=== PATIENT | male | born 1965 | race Hispanic/Latino ===

== ENCOUNTER 2023-02-01 10:49 | Emergency (ER) | payer OTHER, SELFPAY ==
[2023-02-01 12:04] LABS: Absolute Lymphocytes (CBC) 2.2 K/uL (0.7-4.9); Hematocrit 42.3 % (39.6-49.0); Lymphocytes % 25.6 % (15.3-44.8); MCV 87.4 fL (80-100); MPV 8.2 fL (7.6-11.3); Platelets 402 thou/uL (152-406); RBC Red Blood Cell Count 4.84 M/uL (4.33-5.43)
[2023-02-01 12:18] LABS: Protime INR 1.06
[2023-02-01 12:24] LABS: Albumin 3.7 g/dL (3.4-5.0); Bilirubin Direct 0.2 mg/dL (0-0.2); Bilirubin Indirect, Calculated 0.4 mg/dL (0.2-0.8); Bilirubin Total 0.6 mg/dL (0.2-1.0); Magnesium 2.1 mg/dL (1.6-2.4); Potassium 3.7 mEq/L (3.5-5.1); Protein, Total 7.9 g/dL (6.4-8.2); Troponin High Sensitivity 6.6 pg/mL (<58.9)
--- NOTE | 2023-02-01 13:00 | RAD REPORT ---
EXAM DESCRIPTION: US - Extremity Venous Uni Ltd - 02/01/2023 12:45 pm CLINICAL HISTORY: PAIN Leg swelling and edema. COMPARISON: No comparisons FINDINGS: Right lower extremity venous system was interrogated with Doppler technique. Normal flow, compressibility and augmentation was noted. There is no DVT present. IMPRESSION: No evidence of right lower extremity deep venous thrombosis.
[2023-02-01] MEDS ORDERED: HYDROMORPHONE HCL 1 MG/ML INJ ONE (13:01)
[2023-02-01] MEDS ORDERED: ONDANSETRON 4 MG/2 ML VIAL ONE (13:01)
[2023-02-01 13:31] LABS: Specific Gravity > 1.030 (1.005-1.030); Urine Bacteria None Seen /HPF (<20); Urine Bilirubin NEGATIVE (Negative); Urine Blood Negative (Negative); Urine Clarity Extremely Turbid (Clear); Urine Color Yellow (Yellow); Urine Glucose 3+ (Negative); Urine Mucus 4+ /HPF (None Seen); Urine Protein 2+ (Negative); Urine RBC <5 /HPF (None Seen); Urine Urobilinogen 1+ (Normal); Urine pH 5.5 (5.0-7.0)
--- NOTE | 2023-02-01 13:43 | RAD REPORT ---
EXAM DESCRIPTION: CT - Chest Abdomen Pelvis W Cont - 02/01/2023 12:55 pm CLINICAL HISTORY: rapid weight loss, fatigue COMPARISON: CT HEAD SPINE CAP W CONTRAST dated 04/14/2014 TECHNIQUE: Thin axial CT images of the chest, abdomen, and pelvis, performed following intravenous a dministration of 100 mL Isovue-300. Multiplanar reformats were generated and reviewed. All CT scans are performed using dose optimization technique as appropriate and may include automated exposure control or mA/KV adjustment according to patient size. FINDINGS: The lungs are clear.No pleural or pericardial effusion.No intrathoracic adenopathy. The liver, spleen, pancreas, adrenal glands and kidneys are within normal limits apart from mild bila teral adrenal thickening, nonspecific. Gallbladder was surgically removed. No bowel obstruction, free air, free fluid or abscess. Normal appendix. No pathologic lymphadenopath y in the abdomen or pelvis. No worrisome osseous finding. IMPRESSION: No acute findings. No suspicious masses or adenopathy.
--- NOTE | 2023-02-01 13:51 | EDPHYS ---
Physician Documentation [facility] Name: Franck Davies Age: 57 yrs Sex: Male : 1965 Arrival Date: 02/01/2023 Time: 10:49 Bed 16 Private MD: ED Physician Dimas Harry HPI: 02/01 11:46 This 57 yrs old Male presents to ER via Ambulatory with complaints of Leg Pain.sp3 11:46 57-year-old male with history of hypertension, diabetes currently not on any sp3 medications and does not see a physician now presents to the ED for chief complaint right leg pain between his knee and the soft tissue up into his groin, and 50 pound unintentional weight loss over the last 4 months. Patient also complains of general fatigue and malaise. On review of systems, he does endorse dyspnea on exertion. He denies fever, URI symptoms, chest pain, abdominal pain, vomiting, diarrhea, rash, known sick contacts, travel history, or any other signs or symptoms on ROS at this time. Only cancer history in the family is maternal grandmother who had ovarian cancer.. Historical: - Allergies: 11:21 No Known Allergies; iw - PMHx: 11:21 Diabetes mellitus; Hypertensive disorder; iw - PSHx: 11:21 knee; iw - Immunization history:: Client reports receiving the 2nd dose of the Covid vaccine. - Social history:: Smoking status: Patient reports the use of cigarette tobacco products. ROS: 11:47 Eyes: Negative for injury, pain, redness, and discharge, ENT: Negative for injury, sp3 pain, and discharge, Neck: Negative for injury, pain, and swelling, Cardiovascular: Negative for chest pain, palpitations, and edema, Back: Negative for injury and pain, Skin: Negative for injury, rash, and discoloration, Neuro: Negative for headache, weakness, numbness, tingling, and seizure, Psych: Negative for depression, anxiety, suicide ideation, homicidal ideation, and hallucinations, 11:47 All other systems are negative, Exam: 11:47 Constitutional: This is a well developed, well nourished patient who is awake, alert, sp3 and in no acute distress. Head/Face: Normocephalic, atraumatic. Eyes: Pupils equal round and reactive to light, extra-ocular motions intact. Lids and lashes normal. Conjunctiva and sclera are non-icteric and not injected. Cornea within normal limits. Periorbital areas with no swelling, redness, or edema. ENT: Nares patent. No nasal discharge, no septal abnormalities noted. External auditory canals are clear. Oropharynx with no redness, swelling, or masses, exudates, or evidence of obstruction, uvula midline. Mucous membranes moist. Neck: Trachea midline, no thyromegaly or masses palpated, and no cervical lymphadenopathy. Supple, full range of motion without nuchal rigidity, or vertebral point tenderness. No Meningismus. Chest/axilla: Normal chest wall appearance and motion. Nontender with no deformity. No lesions are appreciated. Cardiovascular: Regular rate and rhythm with a normal S1 and S2. No gallops, murmurs, or rubs. Normal PMI, no JVD. No pulse deficits. Respiratory: Lungs have equal breath sounds bilaterally, clear to auscultation and percussion. No rales, rhonchi or wheezes noted. No increased work of breathing, no retractions or nasal flaring. Abdomen/GI: Soft, non-tender, with normal bowel sounds. No distension or tympany. No guarding or rebound. No evidence of tenderness throughout. Male : Normal genitalia with no discharge or lesions. Skin: Warm, dry with normal turgor. Normal color with no rashes, no lesions, and no evidence of cellulitis. Neuro: Awake and alert, GCS 15, oriented to person, place, time, and situation. Cranial nerves II-XII grossly intact. Motor strength 5/5 in all extremities. Sensory grossly intact. Cerebellar exam normal. Normal gait. Psych: Awake, alert, with orientation to person, place and time. Behavior, mood, and affect are within normal limits. 11:47 Musculoskeletal/extremity: Patient is having soft tissue pain in the right medial thigh extending up into his groin. Genitourinary exam is normal. Pulses are normal. Joint exams are normal. Pain to palpation noted however in the musculature and all soft tissue in that compartment.. 12:12 ECG was reviewed by the Attending Physician. EKG demonstrates normal sinus rhythm at 93 sp3 bpm with normal intervals, normal QRS, normal axis, nonspecific diffuse ST/T-segment's without evidence of acute ischemia. Vital Signs: 11:19 BP 141 / 107; Pulse 110; Resp 18; Temp 98.6; Pulse Ox 97% on R/A; Weight 57.61 kg; iw Height 5 ft. 4 in. ; Pain 8/10; 12:00 BP 153 / 110; Pulse 98; Resp 18; Pulse Ox 98% on R/A; eh3 13:00 BP 143 / 100; Pulse 94; Resp 16; Pulse Ox 98% on R/A; eh3 14:00 BP 146 / 102; Pulse 94; Resp 20; Pulse Ox 96% on R/A; eh3 11:19 Body Mass Index 21.80 (57.61 kg, 162.56 cm) iw 11:19 Pain Scale: Adult iw MDM: 11:28 Patient medically screened. sp3 11:48 Data reviewed: vital signs, nurses notes, lab test result(s), EKG, radiologic studies. sp3 ED course: 57-year-old male with sudden weight loss and right lower extremity pain. Highly suspicious for cancerous lesion and possible sarcoma. I am not highly suspicious for infection currently. Patient could also be dehydrated and him not being on medication could exacerbate all of these issues further. Work-up will be broad and will include laboratory values, EKG, urine analysis, ultrasound of the right lower extremity and CT scan of the chest abdomen and pelvis looking for any solid tissue abnormalities. Disposition pending work-up and patient course.. 13:49 ED course: Full work-up is negative with mild hyperglycemia. We will discharge patient sp3 home and he can follow-up with his PCP once he finds 1.. 02/01 11:32 Order name: Basic Metabolic Panel; Complete Time: 13:41 3 02/01 11:32 Order name: CBC with Diff; Complete Time: 13:41 3 02/01 11:32 Order name: LFT's; Complete Time: 13:41 3 02/01 11:32 Order name: Magnesium; Complete Time: 13:41 3 02/01 11:32 Order name: NT PRO-BNP; Complete Time: 13:41 3 02/01 11:32 Order name: PT-INR; Complete Time: 13:41 3 02/01 11:32 Order name: Troponin HS; Complete Time: 13:41 3 02/01 11:32 Order name: UAM; Complete Time: 13:41 3 02/01 11:32 Order name: CT Chest, Abdomen, Pelvis - W/Contrast; Complete Time: 13:48 sp3 02/01 11:32 Order name: US Extremity Venous Unilateral Ltd; Complete Time: 13:41 sp3 02/01 11:32 Order name: EKG; Complete Time: 11:32 sp3 02/01 11:32 Order name: Cardiac monitoring; Complete Time: 11:55 sp3 02/01 11:32 Order name: EKG - Nurse/Tech; Complete Time: 12:07 sp3 02/01 11:32 Order name: IV Saline Lock; Complete Time: 11:55 sp3 02/01 11:32 Order name: Labs collected and sent; Complete Time: 11:55 sp3 02/01 11:32 Order name: O2 Sat Monitoring; Complete Time: 11:55 sp3 Administered Medications: 13:15 Drug: HYDROmorphone IVP 1 mg IVP once Route: IVP; Site: right antecubital; 3 14:00 Follow up: Response: No adverse reaction; Pain is decreased; RASS: Drowsy (-1) 3 13:15 Drug: Ondansetron IVP 4 mg IVP once; over 2 minutes Route: IVP; Site: right antecubital;3 14:00 Follow up: Response: No adverse reaction 3 Disposition Summary: 02/01/23 13:50 Discharge Ordered Notes: Location: Home sp3 Condition: Stable sp3 Diagnosis - Malaise, leg pain, weight loss sp3 Followup: sp3 - With: Private Physician - When: Upon discharge from the Emergency Department - Reason: Continuance of care Discharge Instructions: - Discharge Summary Sheet sp3 - Pain Without a Known Cause sp3 - Preventing Consequences of Unhealthy Weight Loss Behaviors, Adult sp3 Forms: - Medication Reconciliation Form sp3 - Thank You Letter sp3 - Antibiotic Education sp3 - Prescription Opioid Use sp3 - Patient Portal Instructions sp3 - Leadership Thank You Letter sp3 Prescriptions: - Tramadol 50 mg Oral Tablet - take 1 tablet ORAL route every 8 hours as needed; 12 tablet; Refills: 0, sp3 Product Selection Permitted Signatures: Dispatcher [employer] Paloma Al RN RN Dimas Harry MD MD 3 Dawna Mendes RN RN 3
--- NOTE | 2023-02-01 13:51 | ER ---
Nurse's Notes [facility] Name: Franck Davies Age: 57 yrs Sex: Male : 1965 Arrival Date: 02/01/2023 Time: 10:49 Bed 16 Private MD: Diagnosis: Malaise, leg pain, weight loss Presentation: 02/01 11:19 Chief complaint: Patient states: last 40-50 pounds in past five months and then he has iw tight pain on inside of right leg that is tender to the touch started 3 weeks ago. Coronavirus screen: At this time, the client does not indicate any symptoms associated with coronavirus-19. Ebola Screen: Patient negative for fever greater than or equal to 101.5 degrees Fahrenheit, and additional compatible Ebola Virus Disease symptoms Patient denies exposure to infectious person. Patient denies travel to an Ebola-affected area in the 21 days before illness onset. No symptoms or risks identified at this time. Initial Sepsis Screen: Does the patient meet any 2 criteria? No. Patient's initial sepsis screen is negative. Does the patient have a suspected source of infection? No. Patient's initial sepsis screen is negative. Risk Assessment: Do you want to hurt yourself or someone else? Patient reports no desire to harm self or others. 11:19 Method Of Arrival: Ambulatory iw 11:19 Acuity: SARMAD 3 iw 11:30 Onset of symptoms was January 11, 2023. eh3 Historical: - Allergies: 11:21 No Known Allergies; iw - PMHx: 11:21 Diabetes mellitus; Hypertensive disorder; iw - PSHx: 11:21 knee; iw - Immunization history:: Client reports receiving the 2nd dose of the Covid vaccine. - Social history:: Smoking status: Patient reports the use of cigarette tobacco products. Screenin:30 [facility] ED Fall Risk Assessment (Adult) Score/Fall Risk Level 0 - 2 = Low Risk. Abuse eh3 screen: Denies threats or abuse. Denies injuries from another. Nutritional screening: No deficits noted. Tuberculosis screening: No symptoms or risk factors identified. Assessment: 11:30 General: Appears in no apparent distress. uncomfortable, Behavior is cooperative, eh3 appropriate for age. Pain: Complains of pain in left leg. Neuro: Level of Consciousness is awake, alert, obeys commands, Oriented to person, place, time, situation. Cardiovascular: Capillary refill < 3 seconds Patient's skin is warm and dry. Respiratory: Airway is patent Respiratory effort is even, unlabored, Respiratory pattern is regular, symmetrical. GI: Abdomen is round non-distended. Derm: Skin is pink, warm \T\ dry. Musculoskeletal: Circulation, motion, and sensation intact. Vital Signs: 11:19 BP 141 / 107; Pulse 110; Resp 18; Temp 98.6; Pulse Ox 97% on R/A; Weight 57.61 kg; iw Height 5 ft. 4 in. ; Pain 8/10; 12:00 BP 153 / 110; Pulse 98; Resp 18; Pulse Ox 98% on R/A; eh3 13:00 BP 143 / 100; Pulse 94; Resp 16; Pulse Ox 98% on R/A; eh3 14:00 BP 146 / 102; Pulse 94; Resp 20; Pulse Ox 96% on R/A; eh3 11:19 Body Mass Index 21.80 (57.61 kg, 162.56 cm) iw 11:19 Pain Scale: Adult iw ED Course: 10:53 Patient arrived in ED. mg5 10:55 Dimas Harry MD is Attending Physician. sp3 11:21 Triage completed. iw 11:21 Arm band placed on. iw 11:30 Patient has correct armband on for positive identification. Placed in gown. Bed in low eh3 position. Call light in reach. Side rails up X2. Adult w/ patient. Provided Education on: use of call dolan. Client placed on continuous cardiac and pulse oximetry monitoring. NIBP monitoring applied. 11:55 Dawna Mendes, SAHARA is Primary Nurse. eh3 11:55 Inserted saline lock: 20 gauge in right antecubital area, using aseptic technique. eh3 Blood collected. 12:47 US Extremity Venous Unilateral Ltd In Process Unspecified. EDMS 12:56 CT Chest, Abdomen, Pelvis - W/Contrast In Process Unspecified. EDMS 14:18 No provider procedures requiring assistance completed. IV discontinued, intact, eh3 bleeding controlled, No redness/swelling at site. Pressure dressing applied. Administered Medications: 13:15 Drug: HYDROmorphone IVP 1 mg IVP once Route: IVP; Site: right antecubital; eh3 14:00 Follow up: Response: No adverse reaction; Pain is decreased; RASS: Drowsy (-1) [facility] 13:15 Drug: Ondansetron IVP 4 mg IVP once; over 2 minutes Route: IVP; Site: right antecubital;3 14:00 Follow up: Response: No adverse reaction 3 Medication: 14:18 VIS not applicable for this client. 3 Outcome: 13:50 Discharge ordered by . sp3 14:25 Discharged to home ambulatory, with family, [facility] 14:25 Condition: stable 14:25 Discharge instructions given to patient, family, Instructed on discharge instructions, follow up and referral plans. medication usage, Demonstrated understanding of instructions, follow-up care, medications, Prescriptions given X 1, 14:25 Patient left the ED. 3 Signatures: Dispatcher [employer] EDPaloma Salas RN RN iw Patel, Setul, MD MD 3 Dawna Mendes RN RN 3 Jocelyn Milian mg5 Corrections: (The following items were deleted from the chart) 14:17 11:45 Onset of symptoms was January 11, 2023 [facility]
[2023-02-01 14:42] VITALS: TEMP 98.6
[2023-02-01 15:10] VITALS: BP 146/102; O2SAT 96
--- NOTE | 2023-02-02 14:08 | EKG ---
Test Date: 2023-02-01 Test Time: 13:04:02 Evaluation Advisor: JORGE LUIS MEASUREMENT RESULTS: Intervals: Rate: 93 MN: 144 QRSD: 76 QT: 366 QTc: 455 [place]: P: 40 MN: 144 QRS: 83 T: 63 INTERPRETIVE STATEMENTS: Normal sinus rhythm Normal ECG Compared to ECG 06/06/2005 11:13:35 No significant changes Electronically Signed On 02-02-23 14:06:53 CONTRACT CONSULTANT by Adrian Herrera
== END 2023-02-01 14:25 | disposition home or self-care (01) ==
LOC: ER 10:49
DX: R53.81 Other malaise (principal); M79.604 Pain in right leg; R63.4 Abnormal weight loss; Z68.21 Body mass index [BMI] 21.0-21.9, adult; E11.9 Type 2 diabetes mellitus without complications; I10 Essential (primary) hypertension; Z72.0 Tobacco use
CPT/HCPCS: 93005; 85025; 81001; 80048; 36415; 83735; 85610; 80076; 84484; 83880; 71260; 74177; 93971; 96375; 96374; 99284; Q9967; J1170; J2405

== ENCOUNTER 2023-02-07 14:03 | Emergency (ER) | payer OTHER, SELFPAY ==
[2023-02-07] MEDS ORDERED: ONDANSETRON 4 MG/2 ML VIAL ONE (14:58)
[2023-02-07] MEDS ORDERED: KETOROLAC 30 MG/ML INJ ONE (14:58)
[2023-02-07] MEDS ORDERED: MORPHINE 4 MG/ML SYR ONE (14:58)
[2023-02-07] MEDS ORDERED: NA CHLORIDE 0.9% 1,000 ML ONE (14:59)
[2023-02-07 15:13] LABS: Absolute Lymphocytes (CBC) 2.6 K/uL (0.7-4.9); Hematocrit 40.3 % (39.6-49.0); Lymphocytes % 34.9 % (15.3-44.8); MCV 86.3 fL (80-100); MPV 8.4 fL (7.6-11.3); Platelets 371 thou/uL (152-406); RBC Red Blood Cell Count 4.66 M/uL (4.33-5.43)
[2023-02-07 15:34] LABS: Protime INR 0.95
[2023-02-07 15:48] LABS: Specific Gravity 1.012 (1.005-1.030); Urine Bacteria None Seen /HPF (<20); Urine Bilirubin NEGATIVE (Negative); Urine Blood Negative (Negative); Urine Clarity Clear (Clear); Urine Color Light-Yellow (Yellow); Urine Glucose 4+ (Over) (Negative); Urine Mucus Slight /HPF (None Seen); Urine Protein TRACE (Negative); Urine RBC <5 /HPF (None Seen); Urine Urobilinogen Normal (Normal); Urine pH 6.5 (5.0-7.0)
[2023-02-07 16:45] LABS: Albumin 3.9 g/dL (3.4-5.0); Bilirubin Total 0.7 mg/dL (0.2-1.0); Magnesium 1.9 mg/dL (1.6-2.4); Protein, Total 7.9 g/dL (6.4-8.2)
--- NOTE | 2023-02-07 17:09 | EDPHYS ---
Physician Documentation [facility] Name: Franck Davies Age: 57 yrs Sex: Male : 1965 Arrival Date: 02/07/2023 Time: 14:03 Bed 11 Private MD: ED Physician Darvin Reddy HPI: 02/07 15:00 This 57 yrs old Male presents to ER via Ambulatory with complaints of Leg Pain.rt 15:00 Patient presents to the ED with a continuance of a pain to the groin, reports pain to rt his penis that is intermittent. Patient was seen in the ED, due to weight loss unintentionally, had a significant work-up to include CT scan of the chest abdomen pelvis that was essentially unremarkable. Labs are benign. Patient try to get with primary care today, has not yet established with his primary care but was sent to the ED for further eval. States that the tramadol has not adequately improved his symptoms. Denies other acute complaints, symptoms are moderate in severity, no other aggravating or alleviating factors.. Historical: - Allergies: 14:19 No Known Allergies; ph - PMHx: 14:19 diabetes mellitus; Hypertensive disorder; ph - PSHx: 14:19 knee; ph - Immunization history:: Adult Immunizations unknown. - Social history:: Smoking status: Patient reports the use of cigarette tobacco products, denies chronic smoking, but will smoke occasionally, Patient uses alcohol, occasionally. - Family history:: not pertinent. ROS: 15:00 Cardiovascular: Negative for chest pain, palpitations, and edema, Respiratory: Negative rt for shortness of breath, cough, wheezing, and pleuritic chest pain, Abdomen/GI: Negative for abdominal pain, nausea, vomiting, diarrhea, and constipation, Skin: Negative for injury, rash, and discoloration, Neuro: Negative for headache, weakness, numbness, tingling, and seizure, Psych: Negative for depression, anxiety, suicide ideation, homicidal ideation, and hallucinations, 15:00 Constitutional: Positive for weight loss, Negative for fever, 15:00 : Positive for penile pain, Negative for burning with urination, Exam: 15:00 Constitutional: This is a well developed, well nourished patient who is awake, alert, rt and in no acute distress. Chest/axilla: Normal chest wall appearance and motion. Nontender with no deformity. No lesions are appreciated. Cardiovascular: Regular rate and rhythm with a normal S1 and S2. No gallops, murmurs, or rubs. Normal PMI, no JVD. No pulse deficits. Respiratory: Lungs have equal breath sounds bilaterally, clear to auscultation and percussion. No rales, rhonchi or wheezes noted. No increased work of breathing, no retractions or nasal flaring. Abdomen/GI: Soft, non-tender, with normal bowel sounds. No distension or tympany. No guarding or rebound. No evidence of tenderness throughout. Male : Normal genitalia with no discharge or lesions. Skin: Warm, dry with normal turgor. Normal color with no rashes, no lesions, and no evidence of cellulitis. MS/ Extremity: Pulses equal, no cyanosis. Neurovascular intact. Full, normal range of motion. Neuro: Awake and alert, GCS 15, oriented to person, place, time, and situation. Cranial nerves II-XII grossly intact. Motor strength 5/5 in all extremities. Sensory grossly intact. Cerebellar exam normal. Normal gait. Psych: Awake, alert, with orientation to person, place and time. Behavior, mood, and affect are within normal limits. 15:19 ECG was reviewed by the Attending Physician. rt Vital Signs: 14:15 BP 125 / 96; Pulse 115; Resp 18; Temp 99.1; Pulse Ox 95% on R/A; Weight 56.7 kg; Height ph 5 ft. 3 in. ; 14:59 BP 127 / 89; Pulse 106; Resp 18; Pulse Ox 97% on R/A; ld1 15:45 BP 132 / 86; Pulse 94; Resp 18; Pulse Ox 99% on R/A; ld1 17:00 BP 129 / 76; Pulse 98; Resp 16; Pulse Ox 99% ; ld1 14:15 Body Mass Index 22.14 (56.70 kg, 160.02 cm) ph MDM: 14:24 Patient medically screened. rt 21:26 Differential diagnosis: Electrolyte disturbance, chronic pain, weight loss. Data rt reviewed: vital signs, nurses notes, lab test result(s), EKG. Test considered but Not performed: CT: Patient had recent extensive imaging done of the chest, abdomen, pelvis without acute findings, doubt believe that repeat imaging is indicated at this time.. Care significantly affected by the following chronic conditions: Diabetes, Hypertension. Counseling: I had a detailed discussion with the patient and/or guardian regarding the historical points, exam findings, and any diagnostic results supporting the discharge/admit diagnosis, lab results, the need for outpatient follow up. 02/07 14:36 Order name: CBC with Diff; Complete Time: 16:18 rt 02/07 14:36 Order name: CMP; Complete Time: 16:48 rt 02/07 14:36 Order name: CPK; Complete Time: 16:48 rt 02/07 14:36 Order name: Magnesium; Complete Time: 16:48 rt 02/07 14:36 Order name: UAM; Complete Time: 16:18 rt 02/07 14:36 Order name: Lactate w/ 2H reflex if indic.; Complete Time: 16:48 rt 02/07 14:36 Order name: Blood Culture Adult (2) rt 02/07 14:36 Order name: Protime (+inr); Complete Time: 16:18 rt 02/07 14:36 Order name: Ptt, Activated; Complete Time: 16:18 rt 02/07 14:36 Order name: EKG; Complete Time: 14:36 rt 02/07 14:36 Order name: Accucheck; Complete Time: 14:43 rt 02/07 14:36 Order name: Cardiac monitoring; Complete Time: 15:01 rt 02/07 14:36 Order name: EKG - Nurse/Tech; Complete Time: 15:17 rt 02/07 14:36 Order name: IV Saline Lock - Large Bore; Complete Time: 15:01 rt 02/07 14:36 Order name: Labs collected and sent; Complete Time: 15:01 rt 02/07 14:36 Order name: O2 Per Protocol; Complete Time: 14:40 rt 02/07 14:36 Order name: O2 Sat Monitoring; Complete Time: 14:40 rt 02/07 14:36 Order name: Vital Signs; Complete Time: 14:41 rt EC:19 Rate is 87 beats/min. Rhythm is regular, Normal Sinus Rhythm with No ectopy. QRS [place] rt is Normal. [place] interval is normal. QRS interval is normal. QT interval is normal. No Q waves. T waves are Normal. No ST changes noted. Interpreted by me. Administered Medications: 15:01 Drug: Ketorolac IVP 15 mg IVP once Route: IVP; Site: right antecubital; ld1 15:01 Drug: Ondansetron IVP 4 mg IVP once; over 2 minutes Route: IVP; Site: right antecubital;ld1 15:01 Drug: NS 0.9% IV 1000 ml IV at 1 bolus Per protocol; 1000 mL bolus Route: IV; Rate: 1 ld1 bolus; Site: right antecubital; 15:33 Drug: morphine IVP or IV 4 mg IVP once over 4 mins Route: IVP; Infused Over: 4 mins; ph Site: right forearm; 17:15 Drug: Potassium Chloride PO Liquid 40 mEq PO once Route: PO; ld1 Disposition Summary: 02/07/23 17:09 Discharge Ordered Notes: Location: Home rt Problem: an ongoing problem rt Symptoms: are unchanged rt Condition: Stable rt Diagnosis - Hypokalemia rt - Groin pain rt - Weight loss rt Followup: rt - With: Private Physician - When: 2 - 3 days - Reason: Discharge Instructions: - Discharge Summary Sheet rt Forms: - Medication Reconciliation Form rt - Thank You Letter rt - Antibiotic Education rt - Prescription Opioid Use rt - Patient Portal Instructions rt - Leadership Thank You Letter rt Prescriptions: - acetaminophen-codeine 300-30 mg Oral tablet - take 1 tablet ORAL route every 6 hours; 15 tablet; Refills: 0, Product rt Selection Permitted - gabapentin 100 mg Oral capsule - take 1 capsule ORAL route every 8 hours; 30 capsule; Refills: 0, Product rt Selection Permitted - Potassium Chloride 20 meq Oral Packet - take 1 packet ORAL route once daily 1 packet in 6 (six) ounces of water or rt juice; Take after meal; 10 packet; Refills: 0, Product Selection Permitted Signatures: Dispatcher [employer] Sheila Galvan RN RN ph Lena Welsh RN RN ld1 Darvin Reddy MD MD rt Corrections: (The following items were deleted from the chart) 15:48 14:36 Urinalysis+U.LAB.BRZ ordered. EMILIEAK SUSAN
--- NOTE | 2023-02-07 17:09 | ER ---
Nurse's Notes [facility] Name: Franck Davies Age: 57 yrs Sex: Male : 1965 Arrival Date: 02/07/2023 Time: 14:03 Bed 11 Private MD: Diagnosis: Hypokalemia;Groin pain;Weight loss Presentation: 02/07 14:15 Chief complaint: Patient states: R leg pain radiating up to groin, also reports pain to ph L groin and unintentional weight loss, was seen in ED recently for same issue and d/c home, attempted to follow up w/ [facility] who instructed to him to return to the ED. Coronavirus screen: Vaccine status: Patient reports receiving the 2nd dose of the covid vaccine. Ebola Screen: No symptoms or risks identified at this time. Initial Sepsis Screen: Does the patient meet any 2 criteria? No. Patient's initial sepsis screen is negative. Does the patient have a suspected source of infection? No. Patient's initial sepsis screen is negative. Risk Assessment: Do you want to hurt yourself or someone else? Patient reports no desire to harm self or others. Onset of symptoms was February 07, 2023. 14:15 Method Of Arrival: Ambulatory ph 14:15 Acuity: SARMAD 3 ph Historical: - Allergies: 14:19 No Known Allergies; ph - PMHx: 14:19 diabetes mellitus; Hypertensive disorder; ph - PSHx: 14:19 knee; ph - Immunization history:: Adult Immunizations unknown. - Social history:: Smoking status: Patient reports the use of cigarette tobacco products, denies chronic smoking, but will smoke occasionally, Patient uses alcohol, occasionally. - Family history:: not pertinent. Screenin:59 [facility] ED Fall Risk Assessment (Adult) History of falling in the last 3 months, ld1 including since admission No falls in past 3 months (0 pts). Abuse screen: Denies threats or abuse. Denies injuries from another. Nutritional screening: No deficits noted. Tuberculosis screening: No symptoms or risk factors identified. Assessment: 14:59 General: Appears in no apparent distress. comfortable, Behavior is calm, cooperative, ld1 appropriate for age. Pain: Complains of pain in right leg and left leg Pain does not radiate. Pain currently is 8 out of 10 on a pain scale. Quality of pain is described as sharp, shooting, throbbing, Pain began suddenly. Neuro: Level of Consciousness is awake, alert, obeys commands, Oriented to person, place, time, situation. Cardiovascular: Capillary refill < 3 seconds Patient's skin is warm and dry. Respiratory: Airway is patent Respiratory effort is even, unlabored. GI: Abdomen is flat, non-distended. : No signs and/or symptoms were reported regarding the genitourinary system. EENT: No signs and/or symptoms were reported regarding the EENT system. Derm: No signs and/or symptoms reported regarding the dermatologic system. Musculoskeletal: No signs and/or symptoms reported regarding the musculoskeletal system. 15:45 Reassessment: Patient appears in no apparent distress at this time. No changes from ld1 previously documented assessment. Patient and/or family updated on plan of care and expected duration. Pain level reassessed. 17:00 Reassessment: Patient appears in no apparent distress at this time. No changes from ld1 previously documented assessment. Patient and/or family updated on plan of care and expected duration. Pain level reassessed. Patient states symptoms have improved. Vital Signs: 14:15 BP 125 / 96; Pulse 115; Resp 18; Temp 99.1; Pulse Ox 95% on R/A; Weight 56.7 kg; Height ph 5 ft. 3 in. ; 14:59 BP 127 / 89; Pulse 106; Resp 18; Pulse Ox 97% on R/A; ld1 15:45 BP 132 / 86; Pulse 94; Resp 18; Pulse Ox 99% on R/A; ld1 17:00 BP 129 / 76; Pulse 98; Resp 16; Pulse Ox 99% ; ld1 14:15 Body Mass Index 22.14 (56.70 kg, 160.02 cm) ph ED Course: 14:06 Patient arrived in ED. mg5 14:07 Darvin Reddy MD is Attending Physician. rt 14:19 Triage completed. ph 14:20 Arm band placed on Patient placed in an exam room. ph 14:58 No provider procedures requiring assistance completed. Inserted saline lock: 20 gauge ld1 in right antecubital area, using aseptic technique. Blood collected. 14:59 Patient has correct armband on for positive identification. Bed in low position. Call ld1 light in reach. Side rails up X2. monitoring tech on. Pulse ox on. NIBP on. Door closed. Noise minimized. Warm blanket given. 15:01 Blood Culture Adult (2) Sent. ld1 15: Ptt, Activated Sent. ld1 15: Protime (+inr) Sent. ld1 15: Lactate w/ 2H reflex if indic. Sent. ld1 15: Magnesium Sent. ld1 15: CPK Sent. ld1 15: CMP Sent. ld1 15: CBC with Diff Sent. ld1 15:36 Lena Welsh, RN is Primary Nurse. ld1 15:36 UAM Sent. ld1 16:46 Notified ED physician of a critical lab result(s). lactate 2.2. ll1 17:25 IV discontinued, intact, bleeding controlled, No redness/swelling at site. ld1 17:26 Provided Education on: results. ld1 Administered Medications: 15:01 Drug: Ketorolac IVP 15 mg IVP once Route: IVP; Site: right antecubital; ld1 15:01 Drug: Ondansetron IVP 4 mg IVP once; over 2 minutes Route: IVP; Site: right antecubital;ld1 15:01 Drug: NS 0.9% IV 1000 ml IV at 1 bolus Per protocol; 1000 mL bolus Route: IV; Rate: 1 ld1 bolus; Site: right antecubital; 15:33 Drug: morphine IVP or IV 4 mg IVP once over 4 mins Route: IVP; Infused Over: 4 mins; ph Site: right forearm; 17:15 Drug: Potassium Chloride PO Liquid 40 mEq PO once Route: PO; ld1 Medication: 17:26 VIS not applicable for this client. ld1 Outcome: 17:09 Discharge ordered by . rt 17:25 Discharged to home ambulatory, with family, ld1 17:25 Condition: stable 17:25 Discharge instructions given to patient, Instructed on discharge instructions, follow up and referral plans. medication usage, Demonstrated understanding of instructions, follow-up care, medications, Prescriptions given X 3, 17:26 Patient left the ED. ld1 Signatures: Sheila Mendes, RN RN Phyllis Barfield RN RN [facility] Lena Welsh RN RN ld1 Darvin Reddy MD MD rt Jocelyn Milian mg5
[2023-02-07] MEDS ORDERED: POTASSIUM 25 MEQ EFFERV TAB ONE (17:30)
[2023-02-07 17:39] VITALS: TEMP 99.1
[2023-02-07 17:44] VITALS: O2SAT 99
[2023-02-07 17:46] VITALS: BP 129/76
--- NOTE | 2023-02-13 17:12 | EKG ---
Test Date: 2023-02-07 Test Time: 15:12:00 Miner Operator: BJORN Weeks MEASUREMENT RESULTS: Intervals: Rate: 87 AL: 142 QRSD: 78 QT: 400 QTc: 481 [place]: P: 54 AL: 142 QRS: 73 T: 44 INTERPRETIVE STATEMENTS: Normal sinus rhythm Prolonged QT Abnormal ECG Compared to ECG 02/01/2023 13:04:02 Prolonged QT interval now present Electronically Signed On 02-13-23 16:56:56 LABELS MOLDER by Adrian Herrera
== END 2023-02-07 17:26 | disposition home or self-care (01) ==
LOC: ER 14:03
DX: E87.6 Hypokalemia (principal); R63.4 Abnormal weight loss; R10.30 Lower abdominal pain, unspecified; E11.9 Type 2 diabetes mellitus without complications; I10 Essential (primary) hypertension
CPT/HCPCS: 93005; 87040 ×2; 85025; 81001; 36415; 83735; 82550; 85610; 83605; 85730; 80053; 99285; J2405; J7030

== ENCOUNTER 2023-02-13 16:36 | Emergency (ER) | payer OTHER ==
--- OUTSIDE RECORDS SUMMARY | 2023-02-13 16:39 | XMS REPORT | Continuity of Care Document ---
:[address] [facility] t Address 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 Allergies, Adverse Reactions, Alerts This patient has no known allergies or adverse reactions. Social History Social Habit Start Date Stop Date Quantity Comments Source Sexual orientation Aparna Correa - External History of tobacco Cigarette Smoker Aparna Correa use - External Alcohol intake 2023-02-12 2023-02-12 Ex-drinker Aparna marquez 00:00:00 00:00:00 (finding) - External History of Social 2023-02-12 2023-02-12 Aparna Correa function 00:00:00 00:00:00 - External Tobacco use and 2023-02-12 2023-02-12 Smokeless tobacco Gurdeep Correa exposure 00:00:00 00:00:00 non-user - External Sex [birth year] At [birth year] Aparna peguero 00:00:00 00:00:00 - External Smoking Status Start Date Stop Date Source Occasional tobacco smoker 2023-02-12 00:00:00 Gurdeep Correa - External Medications Ordered Filled Start Stop Current Ordering Indication Dosage Frequency Signature Comments Components Source Medication Medication Date Date Medication? Clinician (SIG) Name Name Lisinopril 2022-03- No 40mg Take 1 Bobbi ey 40 MG oral 1-21 11-21 tablet (40 Se ybold Tablet 09:42: 00:00 mg total) - 42 :00 by mouth Externa daily. l Lisinopril 2022-03 Yes [id number] 40mg Take 1 K elsey 40 MG oral 1-21 tablet (40 Sey bold Tablet 00:00: mg total) - 00 by mouth Externa daily. l INSULIN 2022-03 Yes [id number] 30 units Ke lsey ISOPHANE & 1-21 subcutaneo Sey bold REG MIX, 00:00: us once a - HUMAN, 00 day. Externa (HUMULIN l MIX 70/30) (70-30) 100 UNIT/ML subcutaneou s Suspension Acetaminoph 2022-03 Yes 1{tbl} Take 1 Ke lsey en-Codeine 1-17 tablet by Seyb old 300-30 MG 00:00: mouth - oral Tablet 00 every 6 Exter na (six) l hours. Potassium 2022-03 Yes TAKE 1 Aparna Chloride ER 1-16 TABLET BY Sey bold 20 MEQ oral 00:00: MOUTH ONCE - Tab CR 00 DAILY. Externa TAKE AFTER l MEAL Gabapentin 2022-03 Yes 100mg Take 1 Bobbi ey 100 MG oral 1-16 capsule Seybo ld Capsule 00:00: (100 mg - 00 total) by Externa mouth l every 8 hours. Tramadol 2022-03 Yes 50mg Q.[id number] Take 1 K elsey HCl 1-10 [id number] tablet (50 Sey bold (ULTRAM) 50 00:00: 3D mg total) - MG oral 00 by mouth Externa Tablet every 8 l hours as needed. Vital Signs Vital Name Observation Time Observation Value Comments Source Systolic blood 2023-02-12 15:21:00 142 mm[Hg] Aparna Seybold - pressure External Diastolic blood 2023-02-12 15:21:00 98 mm[Hg] Calvin krueger Seybold - pressure External Heart rate 2023-02-12 15:21:00 111 /min Aparna S eybold - External Body temperature 2023-02-12 15:21:00 36.56 Yarely Bobbi ey Seybold - External Respiratory rate 2023-02-12 15:21:00 15 /min Bobbi blaze Sethulisesmaria l - External Body height 2023-02-12 15:21:00 162.6 cm Aparna garcia - External Body weight 2023-02-12 15:21:00 59.421 kg Aparna garcia - External BMI 2023-02-12 15:21:00 22.49 kg/m2 Aparna garcia - External Oxygen saturation in 2023-02-12 15:21:00 99 /min Aparna Sethulisesmaria l - Arterial blood by External Pulse oximetry Procedures This patient has no known procedures. Encounters Start End Encounter Admission Attending Care Care Encounter Source Date/Time Date/Time Type Type Clinicians Facility Department ID 2023-02-26 2023-02-26 Outpatient APARNA SORENSON [id number] Aparna 11:45:00 11:45:00 DIDIER Seybol d 2023-02-13 2023-02-13 Outpatient APARNA HOWARD [id number] Aparna 00:00:00 00:00:00 NEHAL Seybol d 2023-02-12 2023-02-12 Outpatient LAB90 APARNA BRAUN [id number] Aparna 10:00:00 10:00:00 Seybol d 2023-02-12 2023-02-12 Outpatient APARNA HOWARD [id number] Aparna 09:30:00 09:30:00 NEHAL Seybol d 2023-02-12 2023-02-12 Outpatient APARNA SORENSON [id number] Aparna 00:00:00 00:00:00 DIDIER Seybol d 2023-02-12 2023-02-12 Outpatient APARNA SORENSON [id number] Aparna 00:00:00 00:00:00 DIDIER Seybol d 2023-02-07 2023-02-07 Outpatient [facility] [id number] Sahil 11:39:04 11:39:04 [id number] Benjamín 2023-02-07 2023-02-07 Outpatient APARNA SORENSON [id number] Aparna 00:00:00 00:00:00 DIDIER Seybol d Results This patient has no known results.
[2023-02-13 18:33] LABS: Absolute Lymphocytes (CBC) 2.7 K/uL (0.7-4.9); Hematocrit 38.2 % (39.6-49.0); Lymphocytes % 31.6 % (15.3-44.8); MCV 88.2 fL (80-100); MPV 7.7 fL (7.6-11.3); Platelets 362 thou/uL (152-406); RBC Red Blood Cell Count 4.33 M/uL (4.33-5.43)
[2023-02-13 18:47] LABS: Potassium 3.7 mEq/L (3.5-5.1)
--- NOTE | 2023-02-13 19:36 | ER ---
Nurse's Notes [facility] Name: Franck Davies Age: 57 yrs Sex: Male : 1965 Arrival Date: 02/13/2023 Time: 16:36 Bed 5 Private MD: Diagnosis: Pain in left leg;Pain in right leg Presentation: 02/13 17:06 Chief complaint: Low back and bilateral leg pain x 2 weeks. hb 17:07 Coronavirus screen: At this time, the client does not indicate any symptoms associated hb with coronavirus-19. Ebola Screen: No symptoms or risks identified at this time. Initial Sepsis Screen: Does the patient meet any 2 criteria? No. Patient's initial sepsis screen is negative. Does the patient have a suspected source of infection? No. Patient's initial sepsis screen is negative. Risk Assessment: Do you want to hurt yourself or someone else? Patient reports no desire to harm self or others. Onset of symptoms was January 26, 2023. 17:07 Method Of Arrival: Ambulatory hb 17:07 Acuity: SARMAD 3 hb Historical: - Allergies: 17:07 No Known Allergies; hb - PMHx: 17:07 diabetes mellitus; Hypertensive disorder; hb - PSHx: 17:07 knee; hb - Immunization history:: Adult Immunizations unknown. - Social history:: Smoking status: unknown. Screenin:11 [facility] ED Fall Risk Assessment (Adult) Score/Fall Risk Level 0 - 2 = Low Risk nj1 Oriented to surroundings, Maintained a safe environment, Hourly rounding (assess needs \T\ fall precautionary measures) done, Used ambulatory aids as needed (educated on \T\ assisted with). 19:11 Abuse screen: Denies threats or abuse. Denies injuries from another. Nutritional nj1 screening: Had unintentional weight loss of 10 pounds or more. Tuberculosis screening: No symptoms or risk factors identified. Assessment: 19:11 General: Appears uncomfortable, Behavior is calm, cooperative, appropriate for age. nj1 19:11 Pain: Complains of pain in right leg and left leg Pain currently is 10 out of 10 on a nj1 pain scale. Neuro: Level of Consciousness is awake, alert, obeys commands, Oriented to person, place, time, situation. Cardiovascular: Patient's skin is warm and dry. Respiratory: Airway is patent Respiratory effort is even, unlabored. Musculoskeletal: Reports pain in right leg and left leg since worsen over the past 2 weeks.. 19:52 Reassessment: Patient appears in no apparent distress at this time. Patient and/or jb4 family updated on plan of care and expected duration. Pain level reassessed. Patient is alert, oriented x 3, equal unlabored respirations, skin warm/dry/pink. Vital Signs: 17:07 BP 134 / 97; Pulse 105; Resp 16; Temp 98.5(TE); Pulse Ox 98% ; Weight 61.23 kg; Height hb 5 ft. 4 in. ; 17:07 Body Mass Index 23.17 (61.23 kg, 162.56 cm) hb ED Course: 16:38 Patient arrived in ED. rg4 16:39 Allyn Bundy FNP-C is [facility]. kb 16:39 Cl Andersen MD is Attending Physician. kb 17:07 Arm band placed on. hb 17:09 Triage completed. hb 18:10 Sandra Landeros, RN is Primary Nurse. nj1 18:15 Missed attempt(s): 22 gauge in right wrist. bc6 18:26 Basic Metabolic Panel Sent. bc6 18:26 CBC with Diff Sent. bc6 18:26 Inserted saline lock: 20 gauge in left antecubital area, using aseptic technique. Blood bc6 collected. 19:09 Report given to MISTY RN. nj1 19:11 Patient has correct armband on for positive identification. Bed in low position. Call nj1 light in reach. Side rails up X 1. Adult w/ patient. 19:52 No provider procedures requiring assistance completed. IV discontinued, intact, jb4 bleeding controlled, No redness/swelling at site. Pressure dressing applied. Administered Medications: 19:35 Drug: [place] PO 10 mg-325 mg 1 tabs PO once Route: PO; jb4 19:51 Drug: Cyclobenzaprine PO 10 mg PO once Route: PO; jb4 Medication: 19:52 VIS not applicable for this client. jb4 Outcome: 19:36 Discharge ordered by . kb 19:52 Discharged to home ambulatory, with family, jb4 19:52 Condition: stable 19:52 Discharge instructions given to patient, Instructed on discharge instructions, follow up and referral plans. medication usage, Demonstrated understanding of instructions, follow-up care, medications, Prescriptions given X 1, 19:53 Patient left the ED. jb4 Signatures: Allyn Bundy, FARM EQUIPMENT ENGINEER-C FARM EQUIPMENT ENGINEER-Carissa Hi, RN RN Soumya Servin rg4 Young Simon RN RN jb4 Nimco Reyez 6 Sandra Landeros RN RN nj1
--- NOTE | 2023-02-13 19:36 | EDPHYS ---
Physician Documentation [facility] Name: Franck Davies Age: 57 yrs Sex: Male : 1965 Arrival Date: 02/13/2023 Time: 16:36 Bed 5 Private MD: ED Physician Cl Andersen HPI: 02/13 21:51 This 57 yrs old Male presents to ER via Ambulatory with complaints of Leg Pain.kb 21:51 Patient is a 57-year-old male who presents for bilateral lower extremity pain that kb started 3 weeks to a month ago. States this is his third visit to the ER for this complaint he is also seen his PCP for this. Reports he has been given tramadol, gabapentin, Tylenol with codeine and nothing seems to be helping. PCP recommended that he follow-up with pain management. Denies injury or trauma.. Historical: - Allergies: 17:07 No Known Allergies; hb - PMHx: 17:07 diabetes mellitus; Hypertensive disorder; hb - PSHx: 17:07 knee; hb - Immunization history:: Adult Immunizations unknown. - Social history:: Smoking status: unknown. ROS: 21:51 Constitutional: Negative for fever, chills, and weight loss, kb 21:51 MS/extremity: Positive for pain, of the right leg and left leg, 21:51 All other systems are negative, Exam: 21:51 Constitutional: This is a well developed, well nourished patient who is awake, alert, kb and in no acute distress. Head/Face: Normocephalic, atraumatic. ENT: Moist Mucous membranes Cardiovascular: Regular rate Respiratory: Respirations even and unlabored. No increased work of breathing. Talking in full sentences Skin: Warm, dry with normal turgor. Normal color. Neuro: Awake and alert, GCS 15, oriented to person, place, time, and situation. Moves all extremities. Normal gait. 21:51 Musculoskeletal/extremity: Extremities: grossly normal except: noted in the right leg and left leg: pain, tenderness, ROM: intact in all extremities, Circulation is intact in all extremities. Sensation intact. Weight bearing: able to fully bear weight, Vital Signs: 17:07 BP 134 / 97; Pulse 105; Resp 16; Temp 98.5(TE); Pulse Ox 98% ; Weight 61.23 kg; Height hb 5 ft. 4 in. ; 17:07 Body Mass Index 23.17 (61.23 kg, 162.56 cm) hb MDM: 16:39 Patient medically screened. kb 21:51 Data reviewed: vital signs, nurses notes. kb 22:00 Differential diagnosis: contusion, tendonitis, Neuropathy, muscle cramps, electrolyte kb imbalance. Counseling: I had a detailed discussion with the patient and/or guardian regarding the historical points, exam findings, and any diagnostic results supporting the discharge/admit diagnosis, lab results, the need for outpatient follow up, a family practitioner, to return to the emergency department if symptoms worsen or persist or if there are any questions or concerns that arise at home. ED course: Results from her previous 2 visits reviewed. 02/13 17:11 Order name: CBC with Diff; Complete Time: 19:12 kb 02/13 17:11 Order name: Basic Metabolic Panel; Complete Time: 18:48 kb 02/13 17:11 Order name: IV Start; Complete Time: 18:26 kb Administered Medications: 19:35 Drug: [place] PO 10 mg-325 mg 1 tabs PO once Route: PO; jb4 19:51 Drug: Cyclobenzaprine PO 10 mg PO once Route: PO; jb4 Disposition Summary: 02/13/23 19:36 Discharge Ordered Notes: Location: Home kb Condition: Stable kb Diagnosis - Pain in left leg kb - Pain in right leg kb Followup: kb - With: Emergency Department - When: As needed - Reason: Worsening of condition Followup: kb - With: Private Physician - When: 2 - 3 days - Reason: Recheck today's complaints, Continuance of care, Re-evaluation by your physician Discharge Instructions: - Discharge Summary Sheet kb - Musculoskeletal Pain kb Forms: - Medication Reconciliation Form kb - Thank You Letter kb - Antibiotic Education kb - Prescription Opioid Use kb - Patient Portal Instructions kb - Leadership Thank You Letter kb Prescriptions: - Cyclobenzaprine 10 mg Oral Tablet - take 1 tablet ORAL route every 8 hours As needed; 30 tablet; Refills: 0, kb Product Selection Permitted Addendum: 02/15/2023 20:19 Co-signature as Attending Physician, Cl Andersen MD I reviewed the patient's care r n provided by the Advanced Practice Provider and agree with the diagnosis and treatment plan. Signatures: Dispatcher [employer] Allyn Reynoso FNP-C SLAGGER-Ckb Cl Andersen MD MD rn Carissa Nascimento, RN RN hb Young Simon, RN RN jb4 Sandra Landeros RN RN nj1
[2023-02-13] MEDS ORDERED: HYDROCODONE/APAP 10/325 TAB ONE (19:47)
[2023-02-13] MEDS ORDERED: CYCLOBENZAPRINE 10 MG TAB ONE (19:56)
[2023-02-13 19:57] VITALS: BP 134/97; TEMP 98.5; O2SAT 98
== END 2023-02-13 19:53 | disposition home or self-care (01) ==
LOC: ER 16:36
DX: M79.605 Pain in left leg (principal); M79.604 Pain in right leg; E11.9 Type 2 diabetes mellitus without complications; I10 Essential (primary) hypertension
CPT/HCPCS: 36415; 80048; 85025; 99284